=== PATIENT | female | born 1995 | race Caucasian/White ===

== ENCOUNTER 2019-05-25 08:19 | Emergency (ER) | payer MEDICAID ==
[~2019-05-25] VITALS: Ht 165.1 cm; Wt 70.0 kg
[2019-05-25] MEDS ORDERED: ACETAMINOPHEN 325MG TABLET PO PRN (09:45)
[2019-05-25 10:22] LABS: CLARITY URINE CLEAR (CLEAR); COLOR URINE YELLOW (YELLOW); KETONES URINE NEGATIVE (NEGATIVE); LEUKOCYTE ESTERASE URINE NEGATIVE (NEGATIVE); NITRITE URINE NEGATIVE (NEGATIVE); OCCULT BLOOD URINE NEGATIVE (NEGATIVE); PROTEIN URINE NEGATIVE (NEGATIVE); SPECIFIC GRAVITY URINE 1.017 (1.005-1.030); UROBILINOGEN URINE 0.2 E.U./dL (0.2-1.0)
[2019-05-25 10:23] LABS: CHLORIDE 110 mEq/L (98-107)
[2019-05-25 10:33] LABS: BASOPHILS % 0.3 % (0.0-2.0); EOSINOPHILS % 1.2 % (0.0-5.0); HEMATOCRIT. 40.9 % (36.0-48.0); HEMOGLOBIN. 13.7 g/dL (12.0-16.0); LYMPHOCYTES % 23.8 % (20.0-50.0); MEAN CORPUSCULAR HEMOGLOBIN 29.1 pg (28.0-32.0); MEAN CORPUSCULAR VOLUME 87.1 fL (81.0-99.0); MONOCYTES % 7.2 % (2.0-8.0); NEUTROPHILS % 67.5 % (40.0-76.0); PLATELET 238 x1000/uL (130-400); RED CELL DISTRIBUTION WIDTH 13.4 % (11.6-14.6)
[2019-05-25 10:34] LABS: B-HCG QUANTITATIVE 25 mIU/mL (<3)
[2019-05-25 11:30] VITALS: BP 118/65
== END 2019-05-25 12:00 | disposition home or self-care (01) ==
LOC: ER 08:19
DX: O20.0 Threatened abortion (principal); Z3A.01 Less than 8 weeks gestation of pregnancy; Z98.890 Other specified postprocedural states
CPT/HCPCS: 36415; 76830; 76856; 81003; 81025; 84702; 86850; 86900; 99284

== ENCOUNTER 2019-05-28 18:53 | Emergency (ER) | payer SELFPAY ==
[~2019-05-28] VITALS: Ht 160 cm; Wt 66.9 kg
[2019-05-28 19:08] VITALS: BP 135/55
== END 2019-05-28 23:29 | disposition left against medical advice (07) ==
LOC: ER 18:53
DX: Z53.21 Procedure and treatment not carried out due to patient leaving prior to being seen by health care provider (principal)

== ENCOUNTER 2019-05-31 19:51 | Inpatient (IN) | payer SELFPAY ==
[~2019-05-31] VITALS: Ht 157.5 cm; Wt 71.2 kg
[2019-05-31] MEDS ORDERED: SODIUM CHLORIDE 0.9% 1,000 ML IV ONE (20:26)
[2019-05-31] MEDS ORDERED: ONDANSETRON HCL 4MG/2ML INJ IV ONE (20:30)
[2019-05-31] MEDS ORDERED: ACETAMINOPHEN 325MG TABLET PO PRN (20:30)
[2019-05-31] MEDS ORDERED: MORPHINE SULFATE 2 MG/ML CPJ (NOT FOR IM USE) IV ONE (21:30)
[2019-05-31 21:41] LABS: BASOPHILS % 0.4 % (0.0-2.0); EOSINOPHILS % 1.4 % (0.0-5.0); HEMATOCRIT. 36.7 % (36.0-48.0); HEMOGLOBIN. 12.5 g/dL (12.0-16.0); LYMPHOCYTES % 34.5 % (20.0-50.0); MEAN CORPUSCULAR HEMOGLOBIN 29.5 pg (28.0-32.0); MEAN CORPUSCULAR VOLUME 86.6 fL (81.0-99.0); MEAN PLATELET VOLUME 10.2 fl (7.4-10.4); MONOCYTES % 7.6 % (2.0-8.0); NEUTROPHILS % 56.1 % (40.0-76.0); PLATELET 224 x1000/uL (130-400); RED BLOOD CELL COUNT 4.24 mill/uL (4.2-5.4)
[2019-05-31 21:47] LABS: CHLORIDE 108 mEq/L (98-107)
[2019-05-31 21:59] LABS: B-HCG QUANTITATIVE 268 mIU/mL (<3)
[2019-06-01] MEDS ORDERED: SODIUM CHLORIDE 0.9% 1,000 ML IV ONE (01:30)
[2019-06-01] MEDS ORDERED: FENTANYL CITRATE/PF 50MCG/ML 2ML VIAL ONE (02:17)
[2019-06-01] MEDS ORDERED: LIDOCAINE HCL/PF 1% 10 MG/ML 5ML VIAL ONE (02:18)
[2019-06-01] MEDS ORDERED: SUCCINYLCHOLINE CHLORIDE 200MG/10ML IV ONE (02:18)
[2019-06-01] MEDS ORDERED: PROPOFOL 200MG/20ML VIAL IV ONE (02:18)
[2019-06-01] MEDS ORDERED: SODIUM CHLORIDE 0.9% 10ML VIAL ONE (02:19)
[2019-06-01] MEDS ORDERED: DEXAMETHASONE 4MG/ML 1ML VIAL ONE (02:19)
[2019-06-01] MEDS ORDERED: ONDANSETRON HCL 4MG/2ML INJ ONE (02:19)
[2019-06-01] MEDS ORDERED: METOCLOPRAMIDE HCL 10MG/2ML VIAL ONE (02:19)
[2019-06-01] MEDS ORDERED: ROCURONIUM BROMIDE 10MG/ML VIAL 5ML IV ONE (02:27)
[2019-06-01] MEDS ORDERED: KETOROLAC 30MG/ML VIAL ONE (02:29)
[2019-06-01] MEDS ORDERED: MIDAZOLAM HCL 2 MG/2 ML VIAL ONE (02:42)
[2019-06-01] MEDS ORDERED: NEOSTIGMINE METHYLSULFATE 1MG/ML 10 ML VIAL ONE (03:13)
[2019-06-01] MEDS ORDERED: GLYCOPYRROLATE 0.2 MG/ML 2ML VIAL ONE (03:14)
[2019-06-01] MEDS ORDERED: SKIN ADHESIVE 0.7 GM EA TOP ONE (03:20)
[2019-06-01] MEDS ORDERED: ONDANSETRON HCL 4MG/2ML INJ IV PRN ×2 (03:30→03:45)
[2019-06-01] MEDS ORDERED: HYDROMORPHONE HCL/PF 2MG/ML CPJ IV PRN (03:45)
[2019-06-01] MEDS ORDERED: HYDROMORPHONE HCL/PF 2MG/ML CPJ ONE (03:45)
[2019-06-01] MEDS: HYDROMORPHONE HCL/PF 2MG/ML CPJ IV PRN ×4 (03:46→04:42)
[2019-06-01 05:30] VITALS: BP 110/50
[2019-06-01] MEDS: MORPHINE SULFATE 2 MG/ML CPJ (NOT FOR IM USE) IV PRN ×3 (05:58→22:38)
[2019-06-01 08:00] VITALS: BP 106/49
[2019-06-01] MEDS: DEXT 5%/0.45% NACL KCL 20MEQ/L 1,000 ML IV SCH ×2 (08:29→22:01)
[2019-06-01] MEDS: CEFAZOLIN 1000MG PREMIX 50 ML IV SCH ×3 (08:29→22:01)
[2019-06-01 09:00] VITALS: BP 106/49
[2019-06-01 12:00] VITALS: BP 108/55
[2019-06-01] MEDS ORDERED: METHOTREXATE SODIUM/PF 50 MG/2 ML VIAL IM SCH (13:00)
[2019-06-01 16:00] VITALS: BP 109/53
[2019-06-02 04:00] VITALS: BP 101/41
[2019-06-02] MEDS: DEXT 5%/0.45% NACL KCL 20MEQ/L 1,000 ML IV SCH ×3 (05:41→22:02)
[2019-06-02] MEDS: CEFAZOLIN 1000MG PREMIX 50 ML IV SCH ×3 (05:41→22:02)
[2019-06-02 06:11] LABS: BASOPHILS % 0.3 % (0.0-2.0); EOSINOPHILS % 0.5 % (0.0-5.0); HEMATOCRIT. 32.4 % (36.0-48.0); HEMOGLOBIN. 10.9 g/dL (12.0-16.0); LYMPHOCYTES % 30.2 % (20.0-50.0); MEAN CORPUSCULAR HEMOGLOBIN 29.6 pg (28.0-32.0); MEAN CORPUSCULAR VOLUME 87.6 fL (81.0-99.0); MEAN PLATELET VOLUME 10.3 fl (7.4-10.4); MONOCYTES % 6.3 % (2.0-8.0); NEUTROPHILS % 62.7 % (40.0-76.0); PLATELET 207 x1000/uL (130-400); RED CELL DISTRIBUTION WIDTH 13.4 % (11.6-14.6)
[2019-06-02 06:19] LABS: CHLORIDE 111 mEq/L (98-107)
[2019-06-02 08:34] VITALS: BP 91/56
[2019-06-02 12:33] VITALS: BP 104/53
[2019-06-02] MEDS: HYDROCODONE/ACETAMINOPHEN 5/325MG TABLET PO PRN ×2 (14:11→17:41)
[2019-06-02 16:05] VITALS: BP 110/55
[2019-06-02 20:00] VITALS: BP 109/59
[2019-06-03] VITALS: BP 108/44
[2019-06-03 04:00] VITALS: BP 112/49
[2019-06-03] MEDS: CEFAZOLIN 1000MG PREMIX 50 ML IV SCH ×2 (06:03→13:56)
[2019-06-03] MEDS ORDERED: HYDR-4001 PO (06:47)
[2019-06-03 08:00] VITALS: BP 110/55
[2019-06-03] MEDS: DEXT 5%/0.45% NACL KCL 20MEQ/L 1,000 ML IV SCH (08:00)
[2019-06-03 12:00] VITALS: BP 109/56
[2019-06-03 12:46] VITALS: BP 110/60
[2019-06-03 14:14] VITALS: BP 112/62
[2019-06-03] MEDS: HYDROCODONE/ACETAMINOPHEN 5/325MG TABLET PO PRN (14:14)
== END 2019-06-03 16:01 | disposition home or self-care (01) | DRG 545 ==
LOC: ER 21:30 → EDBEDREQ 06-01 01:30 → 6WST 06-01 01:31 → ENRESERV 06-01 01:38
PROVIDERS: ADMIT Obstetrics & Gynecology; ATTEND Obstetrics & Gynecology
PROC: 0UB60ZZ Excision of Left Fallopian Tube, Open Approach (ICD-10-PCS; principal; 2019-06-01)
PROC: 10T20ZZ Resection of Products of Conception, Ectopic, Open Approach (ICD-10-PCS; 2019-06-01)
DX: O00.90 Unspecified ectopic pregnancy without intrauterine pregnancy (principal); Z60.2 Problems related to living alone
CPT/HCPCS: 36415; 76801; 80048; 80299; 84702; 86850; 86900; 88304; 96361; 96374; 96375; 99291; J0330; J0690; J1100; J1170; J1885; J2250; J2270; J2405; J2704; J2710; J2765; J3010; J3490; J7030; J9260

== ENCOUNTER 2019-06-22 10:42 | Emergency (ER) | payer SELFPAY ==
[~2019-06-22] VITALS: Ht 160 cm; Wt 55.0 kg
[~2019-06-22 10:42] MED LIST: HYDR-4001 PO
[2019-06-22] MEDS ORDERED: BACITRACIN ZINC OINT UDPKT TOP ONE (14:00)
[2019-06-22] MEDS ORDERED: ACETAMINOPHEN WITH CODEINE 300/30MG TABLET PO ONE (14:00)
[2019-06-22 14:39] VITALS: BP 101/56
== END 2019-06-22 11:47 | disposition home or self-care (01) ==
LOC: ER 10:42
DX: T81.31XA Disruption of external operation (surgical) wound, not elsewhere classified, initial encounter (principal); Y83.8 Other surgical procedures as the cause of abnormal reaction of the patient, or of later complication, without mention of misadventure at the time of the procedure; Y92.018 Other place in single-family (private) house as the place of occurrence of the external cause
CPT/HCPCS: 99283

== ENCOUNTER 2023-04-23 22:30 | Emergency (ER) | payer MEDICAID, OTHER ==
[~2023-04-23] VITALS: Ht 167.6 cm; Wt 60.0 kg
[2023-04-23 22:36] VITALS: O2SAT 99
[2023-04-23 23:03] LABS: BASOPHILS % 0.5 % (0.0-2.0); EOSINOPHILS % 1.5 % (0.0-5.0); HEMATOCRIT. 38.6 % (36.0-48.0); HEMOGLOBIN. 13.3 g/dL (12.0-16.0); LYMPHOCYTES % 44.4 % (20.0-50.0); MEAN CORPUSCULAR HEMOGLOBIN 29.4 pg (28.0-32.0); MEAN CORPUSCULAR HGB CONC 34.6 g/dL (31.0-37.0); MEAN CORPUSCULAR VOLUME 85.1 fL (81.0-99.0); MEAN PLATELET VOLUME 10.4 fl (7.4-10.4); MONOCYTES % 8.1 % (2.0-8.0); NEUTROPHILS % 45.5 % (40.0-76.0); PLATELET 233 x1000/uL (130-400); RED BLOOD CELL COUNT 4.54 mill/uL (4.2-5.4); RED CELL DISTRIBUTION WIDTH 13.1 % (11.6-14.6); WHITE BLOOD COUNT 8.8 x1000/uL (4.5-11.0)
[2023-04-23 23:11] LABS: CHLORIDE 107 mEq/L (98-107); INDEX HEMOLYSI 1 (1-3); INDEX ICTERIC 1 (1-4); INDEX LIPEMIC 1 (1-3); POTASSIUM 3.3 mEq/L (3.5-5.1); SODIUM 138 mEq/L (136-145)
[2023-04-23 23:12] LABS: INR 0.9; PARTIAL THROMBOPLASTIN TIME 28.9 sec (23.4-31.0); PROTHROMBIN TIME 10.1 sec (9.6-11.0)
[2023-04-23] MEDS ORDERED: KETOROLAC 60MG/2ML VIAL IM ONE (23:15)
[2023-04-23 23:17] LABS: ALBUMIN 3.7 g/dL (3.4-5.0); ASPARTATE AMINOTRANSFERASE 23 IU/L (15-37); BILIRUBIN TOTAL 0.2 mg/dL (0.1-1.0); CALCIUM 9.1 mg/dL (8.5-10.1); CARBON DIOXIDE 28 mEq/L (21-32); CREATININE 0.7 mg/dL (0.6-1.3); GLUCOSE 99 mg/dL (70-105); UREA NITROGEN BLOOD 21 mg/dL (7-21)
[2023-04-23 23:21] LABS: PROTEIN TOTAL 7.4 g/dL (6.0-8.3)
[2023-04-23 23:23] LABS: TROPONIN I HIGH SENSITIVITY < 4 ng/L (<54)
[2023-04-23 23:25] LABS: ALANINE AMINOTRANSFERASE 49 IU/L (13-61)
[2023-04-24 01:42] LABS: TROPONIN I HIGH SENSITIVITY < 4 ng/L (<54)
[2023-04-24] MEDS ORDERED: NAPR-1074 MT (02:09)
[2023-04-24] MEDS ORDERED: KETOROLAC 30MG/ML VIAL IM NR (02:15)
[2023-04-24 02:25] VITALS: BP 135/86; PULSE 64; RESP 18
== END 2023-04-24 02:40 | disposition home or self-care (01) ==
LOC: ER 22:30
DX: R07.89 Other chest pain (principal); Z98.890 Other specified postprocedural states
CPT/HCPCS: 80053; 81025; 85025; 85610; 85730; 84484 ×2; 36415 ×2; 71045; 93005; 99285; 96372; 87426; C9803; J1885; Z7610

== ENCOUNTER 2024-02-05 20:36 | Emergency (ER) | payer MEDICAID, OTHER ==
[~2024-02-05] VITALS: Ht 160 cm; Wt 73.0 kg
[~2024-02-05 20:36] MED LIST changes: +NAPR-1074 MT
[2024-02-05 21:03] VITALS: O2SAT 99
[2024-02-05 22:34] LABS: CLARITY URINE CLEAR (CLEAR); COLOR URINE YELLOW (YELLOW); GLUCOSE URINE NEGATIVE (NEGATIVE); KETONES URINE NEGATIVE (NEGATIVE); LEUKOCYTE ESTERASE URINE NEGATIVE (NEGATIVE); NITRITE URINE NEGATIVE (NEGATIVE); OCCULT BLOOD URINE NEGATIVE (NEGATIVE); PH URINE 6.5 (4.5-8.0); PROTEIN URINE NEGATIVE (NEGATIVE); SPECIFIC GRAVITY URINE 1.013 (1.005-1.030); UROBILINOGEN URINE 0.2 E.U./dL (0.2-1.0)
[2024-02-05] MEDS ORDERED: VALA100044 MT (23:05)
[2024-02-05 23:29] VITALS: BP 107/63; PULSE 80; RESP 18; TEMP 98.4
== END 2024-02-05 23:30 | disposition home or self-care (01) ==
LOC: ER 20:36
DX: B00.9 Herpesviral infection, unspecified (principal); Z98.890 Other specified postprocedural states
CPT/HCPCS: 81003; 81025; 99284